=== PATIENT | female | born 1980 | race American Indian/Alaskan Native ===

== ENCOUNTER 2018-03-18 17:11 | Emergency (ER) | payer MEDICAID ==
[2018-03-18 17:38] VITALS: BP 143/68
[2018-03-18] MEDS ORDERED: CLARITIN-D 24HR PO ONE (18:10)
--- NOTE | 2018-03-18 18:17 | Emergency Department Report ---
Eye Injury/Foreign Body - HPI Duration: 5 Days Eye Location: Left Severity: Mild Tetanus Status: Up to Date Eye Symptoms: Eye Pain: No, Blurred Vision: Yes (l), Eye Redness: Yes (b), Grinding/Hammering Metal: No, Used Eye Protection: No, Contact Lens Use: No, Recalls Injury: No, Photophobia: Yes (r) ED Review of Systems ROS: Stated complaint: BOTH EYE VISION/ PAIN Other details as noted in HPI Comment: All other systems reviewed and negative Constitutional: denies: chills, fever Eyes: vision change. denies: eye pain, eye discharge ENT: denies: ear pain, throat pain Respiratory: denies: cough, orthopnea Cardiovascular: denies: palpitations Endocrine: denies: excessive sweating Gastrointestinal: denies: abdominal pain Genitourinary: denies: urgency Musculoskeletal: denies: back pain Skin: denies: rash Neurological: denies: headache, weakness Psychiatric: denies: anxiety, depression Hematological/Lymphatic: denies: easy bleeding ED Past Medical Hx - Past Medical History Hx Hypertension: No Hx Congestive Heart Failure: No Hx Diabetes: No Hx Deep Vein Thrombosis: No Hx Renal Disease: No Hx Sickle Cell Disease: No Hx Seizures: No Hx Asthma: No Hx COPD: No Hx HIV: No - Surgical History Past Surgical History?: No - Family History Family history: no significant - Social History Smoking Status: Never Smoker Substance Use Type: None - Medications Home Medications: Home Medications Medication Instructions Recorded Confirmed Last Taken Type Vit/Iron Fum/Folic AC 1 each PO QDAY #90 tablet 12/07/14 02/22/1806/02 12:00 Rx [ Vitamin Tablet] Valacyclovir HCl [Valtrex] 1,000 mg PO DAILY 06/03/15 02/22/18 06/02/15 11:00 History HYDROcodone/APAP 5-325 [[place] 1 each PO Q6H PRN #20 tablet 06/04/15 02/22/18 Unknown Rx 5-325 mg TAB] Ibuprofen [Motrin 800 MG tab] 800 mg PO Q8HR PRN #90 tablet 06/04/15 02/22/18 Unknown Rx Eye Injury Exam - Exam General: Vital signs noted. No distress. Alert and acting appropriately. pt has no trauma to eyes gave 1 m ago has not been sleeping reports that eyes have felt heavy since she has had blurry l eye and light sensitive r eye bilateral perrl no abrasion or ulceration r eye tearing and mild conjunctivitis denies allergies - Visual Acuity Left Vision Acuity Degree: 20/25 Right Vision Acuity Degree: 20/50 Bilateral Vision Acuity Degree: 20/20 ED Course Vital Signs 03/18/18 17:35 Temperature 98 F Pulse Rate 51 L Respiratory 18 Rate Blood Pressure 143/68 O2 Sat by Pulse 99 Oximetry - Reevaluation(s) Reevaluation #1: 03/18/18 18:20 NO FLASHING LIGHTS NO CURTAINS NO FLOATERS NO TRAUMA GLOBE INTACT EOMS INTACT PERRL NO PAIN WITH PUPIL CONSTRICTION OR DILATION [place] PO BP NORMAL NO MEDS AT HOME DOES NOT WEAR CONTACTS OR EYE GLASSES STATES HAS MEDICAID AND COULD NOT FIND EYE MD TO SEE HER TODAY. ED Medical Decision Making - Differential Diagnosis conjunctivitis; trauma; eye strain Critical care attestation.: If time is entered above; I have spent that time in minutes in the direct care of this critically ill patient, excluding procedure time. ED Disposition Clinical Impression: Eye abnormalities, Eye strain, right Disposition: DC-01 TO HOME OR SELFCARE Is pt being admited?: No Does the pt Need Aspirin: No Condition: Stable Instructions: Conjunctivitis (ED) Additional Instructions: FOLLOW UP WITH DR CARRINGTON IN AM DIET TOLERATED HYDRATE WELL ACTIVITY TOLERATED TRY NOT TO RUB THE EYES IF WORSENS [facility] HAS ACCESS TO [facility] ALL DAY AND NIGHT. Referrals: RASHID CARRINGTON MD [Staff Physician] - 3-5 Days Time of Disposition: 18:17
== END 2018-03-18 18:47 | disposition home or self-care (01) ==
LOC: ED 17:11
DX: H53.10 Unspecified subjective visual disturbances (principal)
CPT/HCPCS: 99282